=== PATIENT | male | born 1990 | race Caucasian/White ===

== ENCOUNTER 2016-08-30 23:05 | Emergency (ER) | payer OTHER | END 2016-08-31 01:16 | disposition left against medical advice (07) | LOC: ER1 23:05 | DX: Z53.21 Procedure and treatment not carried out due to patient leaving prior to being seen by health care provider (principal) | CPT/HCPCS: 93005 ==

== ENCOUNTER 2021-06-23 15:51 | Emergency (ER) | payer BC ==
[~2021-06-23 15:51] MED LIST: ALLERGY RELIEF10 M3 PO; AUGMENTIN 875-1 EACH PO; ERYTHROMYCIN O3.5 GM OS; FLEXERIL 10 MG10 MG PO; KEFLEX CAP 500500 MG PO; PREDNISONE20 MG PO; ULTRAM50 MG PO; ZOFRAN4 MG PO
== END 2021-06-23 18:18 | disposition home or self-care (01) ==
LOC: ER1 15:51
DX: U07.1 COVID-19 (principal)
CPT/HCPCS: 0240U; 99283; J0690; J0692

== ENCOUNTER 2021-09-12 00:59 | Emergency (ER) | payer SELFPAY ==
[2021-09-12] MEDS ORDERED: IBUPROFEN600 MG PO (03:06)
== END 2021-09-12 03:18 | disposition home or self-care (01) ==
LOC: ER1 00:59
DX: S60.111A Contusion of right thumb with damage to nail, initial encounter (principal); F17.290 Nicotine dependence, other tobacco product, uncomplicated; W23.1XXA Caught, crushed, jammed, or pinched between stationary objects, initial encounter; Y92.89 Other specified places as the place of occurrence of the external cause; Y99.0 Civilian activity done for income or pay
CPT/HCPCS: 73130; 99283